=== PATIENT | female | born 1950 | race Caucasian/White ===

== ENCOUNTER 2016-10-28 07:11 | Outpatient (CLI) | payer MEDICARE, BC ==
[~2016-10-28] VITALS: Ht 170.2 cm; Wt 114.5 kg
--- NOTE | ~2016-10-28 | HEMODYNAMI ---
PATIENT:LU ALONZO MEDICAL RECORD: [id number] : 52 LOCATION:[facility] ADMISSION DATE: 10/28/16 Generatedon:10/28/201610:39 Patient name: LU ALONZO Patient #: [id number] SSN: : 1950 Date of study: 10/28/2016 Page: Of Hemodynamic Procedure Report Patient Data Patient Demographics Procedure consent was obtained First Name: LU Gender: Female Last Name: CHERI : 1950 Patient #: [id number] Age: 66 year(s) Race: Additional ID: [id number] Contact details Address: [facility] [address] State: [place] City: [place] Zip code: [address] Past Medical History Performed procedures and imaging results Date Procedure Procedure Results Comments Stress testing Positive->Intermediate with SPECT MPI risk Allergies: No known allergies Admission Admission Data Admission Date: 10/28/2016 Admission Time: 7:11 Admit Source: Other Height (in.): 67 BSA: 2.24 (m2) Height (cm.): 170.18 BMI: 39.94 (kg/m2) Weight (lbs.): 255 Weight (kg.): 115.67 Lab Results Lab Result Date: 10/28/2016 Lab Result Time: 0:00 Biochemistry Name Units Result Min Max Creatinine mg/dl 0.8 --(-*--)-- 0.6 1.3 CBC Name Units Result Min Max Hemoglobin g/dl 13.3 -*(----)-- 13.5 17.5 Procedure Procedure Types Cath Procedure Diagnostic Procedure LHC LHC w/Coronaries Miscellaneous Procedures Moderate Sedation up to 15 minutes Procedure Description Procedure Date Procedure Date: 10/28/2016 Procedure Start Time: 10:30 Procedure End Time: 10:38 Procedure Staff Name Function Kameron Samson MD Performing Physician Ernst Padron RN Nurse Bea Alberto RT Scrub Reinier Flores RT Monitor Procedure Data Cath Procedure Fluoroscopy Diagnostic fluoroscopy Total fluoroscopy Time: 1.4 time: 1.4 min min Diagnostic fluoroscopy Total fluoroscopy dose: 466 dose: 466 mGy mGy Contrast Material Contrast Material Type Amount (ml) Isovue 300 45 Entry Location Entry Primary Successful Side Size Upsize Upsize Entry Closure Vivar ccessful Closure Location (Fr) 1 (Fr) 2 (Fr) Remarks Device Remarks Radial Right 6 Fr Mechanical artery Short Compression Estimated blood loss: 5 ml Diagnostic catheters Device Type Used For End Catheter Placement Terumo 5Fr Kenton 110cm Procedure catheter Procedure Complications No complications Procedure Medications Medication Administration Route Dosage Oxygen NC 2 l/min Heparin Flush Bag added to field 2 bags (1000units/500ml NS) 0.9% NaCl I.V. 100 ml/hr Radial Cocktail added to field 1 syringe (Verapomil 2mg/Nitro 400mcg/Heparin 1500units) Fentanyl I.V. 50 mcg Versed I.V. 1 mg Fentanyl I.V. 50 mcg Versed I.V. 1 mg Fentanyl I.V. 50 mcg Fentanyl I.V. 50 mcg Radial Cocktail I.A. 1 syringe (Verapomil 2mg/Nitro 400mcg/Heparin 1500units) Hemodynamics Rest BSA: 2.24 (m2) HGB: 13.3 (g/dl) O2 Consumption: Estimated: 256.29 (ml/min) O2 Co nsumption indexed: Estimated:114.42 (ml/min/m) Heart Rate: 126 (bpm) Snapshots Pre Cath Intra NCS Post Cath Vital Signs Time Heart Resp SPO2 NIBP (mmHg) Rhythm Pain Sedation Rate (ipm) (%) Status Level (bpm) 10:04:56 82 18 99 130/69(100) NSR 0 (11) 10(A) , No pain 10:09:16 83 18 99 136/74(100) NSR 0 (11) 10(A) , No pain 10:13:32 84 18 97 130/70(95) NSR 0 (11) 10(A) , No pain 10:17:52 86 19 96 125/71(86) NSR 0 (11) 10(A) , No pain 10:22:12 88 19 96 126/71(92) NSR 0 (11) 10(A) , No pain 10:26:30 86 16 98 114/68(80) NSR 0 (11) 10(A) , No pain 10:30:46 87 17 94 115/68(79) NSR 0 (11) 9(A) , No pain 10:34:58 95 16 95 107/53(64) NSR 0 (11) 9(A) , No pain 10:38:37 98 16 95 115/81(89) NSR 0 (11) 9(A) , No pain Medications Time Medication Route Dose Verified Delivered Reason Notes Effectiveness by by 10:12:17 Oxygen NC 2 l/min Ernst Ernst Per Vito Padron RN physician RN 10:12:25 Heparin Flush added 2 bags Ernst Ernst used for Bag to Vito Padron RN procedure (1000units/500ml field RN NS) 10:12:39 0.9% NaCl I.V. 100 Ernst Ernst Per ml/hr Vito Padron RN physician RN 10:13:00 Radial Cocktail added 1 Ernst Ernst used for (Verapomil to syringe Vito Padron RN procedure 2mg/Nitro RN 400mcg/Heparin 1500units) 10:23:29 Fentanyl I.V. 50 mcg Ernst Ernst for sedation Vito Padron RN RN 10:23:36 Versed I.V. 1 mg Ernst Ernst for sedation Vito Padron RN RN 10:25:22 Fentanyl I.V. 50 mcg Ernst Ernst for sedation Vito Padron RN RN 10:25:26 Versed I.V. 1 mg Ernst Ernst for sedation Vito Padron RN RN 10:29:59 Fentanyl I.V. 50 mcg Ernst Ernst for sedation Vito Padron RN RN 10:32:05 Fentanyl I.V. 50 mcg Ernst Ernst for sedation Vito Padron RN RN 10:32:13 Radial Cocktail I.A. 1 Ernst Kameron for (Verapomil syringe Vito Samson MD vasodilation 2mg/Nitro RN 400mcg/Heparin 1500units) Procedure Log Time Note 9:28:50 Diagnostic Cath Status : Elective 9::23 Time tracking: Regular hours 9::28 Plan of Care:Hemodynamics will remain stable., Cardiac rhythm will remain stable., Comfort level will be maintained., Respiratory function will remain adequate., Patient/ family verbilizes understanding of procedure., Procedure tolerated without complication., Recovers from procedure without complications.. 9:30:45 Patient Height : 170.18 cm 9:30:47 Patient Weight : 115.67 kg 9:32:39 Lab Result : Hemoglobin 13.3 g/dl 9:32:39 Lab Result : Creatinine 0.8 mg/dl 9:33:27 Patient allergic to No known allergies 9:33:46 H&P Date Dictated: 10/16/2016 Within 30 days and on chart., H&P Addendum completed by physician on day of procedure. (MUST COMPLETE FOR ALL OUTPATIENTS). 9:45:53 Ernst Padron RN sent for patient. Start room use. 9:57:28 Patient received from Pre/Post Procedure Room to CCL 1 Alert and oriented. Tansferred to table in Supine position. 9:57:37 Warm blankets applied, and agusto hugger turned on for patient comfort. 9:57:38 Correct patient and procedure confirmed by team. 9:57:39 Signed procedure consent form obtained from patient. 9:57:39 ECG and BP/O2 sat monitors applied to patient. 9:57:40 Full Disclosure recording started 10:03:38 Vital chart was started 10:03:39 Baseline sample Acquired. 10:03:45 Rhythm: sinus rhythm 10:10:11 Pre-procedure instructions explained to patient. 10:10:12 Pre-op teaching completed and patient verbalized understanding. 10:10:13 Family in waiting room. 10:10:14 Patient NPO since Midnight. 10:10:16 Is the patient allergic to Iodine/contrast media? No. 10:10:17 Is patient on blood thinner?No 10:10:19 Patient diabetic? No. 10:10:22 Previous problem with sedation/anesthesia? No ? 10:10:23 Snore? Yes 10:10:24 Sleep apnea? Yes 10:10:25 Deviated septum? No 10:10:26 Opens mouth fully? Yes 10:10:26 Sticks out tongue? Yes 10:10:28 Airway obstruction? No ? 10:10:30 Dentures? No ? 10:10:34 Modified Triston's test Ulnar < 7 seconds 10:10:35 Patient pain scale 0/10 ?. 10:10:43 IV patent on arrival in left hand with 0.9% NaCl at [facility]. 10:10:57 Lab results completed and on chart. 10:11:00 Right Radial & Right Groin area was prepped with chlora-prep and draped in sterile fashion 10:11:01 Alarms reviewed by RDarryl N. 10:11:02 Sharps counted by scrub and verified by R.N. 10:12:17 Oxygen 2 l/min NC was administered by Ernst Padron RN; Per physician; 10:12:25 Heparin Flush Bag (1000units/500ml NS) 2 bags added to field was administered by Ernst Padron RN; used for procedure; 10:12:39 0.9% NaCl 100 ml/hr I.V. was administered by Ernst Padron RN; Per physician; 10:12:55 Baseline sample Acquired. 10:13:00 Radial Cocktail (Verapomil 2mg/Nitro 400mcg/Heparin 1500units) 1 syringe added to field was administered by Ernst Padron RN; used for procedure; 10:13:03 Use device set Radial Dx 10:13:07 Tegaderm 4 x 4 opened to sterile field. 10:13:08 Acist Manifold opened to sterile field. 10:13:08 Acist Hand Control opened to sterile field. 10:13:09 Acist Syringe opened to sterile field. 10:13:10 Medline Cath Pack opened to sterile field. 10:13:10 Bag Decanter opened to sterile field. 10:13:11 Terumo 6Fr Slender Glidesheath opened to sterile field. 10:13:11 St Asim 260cm J .035 wire opened to sterile field. 10:13:30 ACC Patient presents with Stable Angina CCS Anginal Class 2--Slight limitation of ordinary activity. 10:13:33 ACCPatient has been prescribed/administered the following anti-anginal medication within the last 2 weeks: Beta Elayne 10:15:12 Admit Source: Other 10:21:00 Zero performed for pressure channel P2 10:23:19 Physician arrived 10:23:19 --------ALL STOP TIME OUT------ 10:23:20 Final Timeout: patient, procedure, and site verified with staff and physician. All members of the team are in agreement. 10:23:23 Right Radial & Right Groin site verified by team. 10:23:25 Physical assessment completed. ASA score P 2 - A patient with mild systemic disease as per Kameron Samson MD. 10::29 Fentanyl 50 mcg I.V. was administered by Ernst Padron RN; for sedation; ::29 Sedation plan: IV Moderate Sedation Versed, Fentanyl 10::36 Versed 1 mg I.V. was administered by Ernst Padron RN; for sedation; 10::22 Fentanyl 50 mcg I.V. was administered by Ernst Padron RN; for sedation; 10::26 Versed 1 mg I.V. was administered by Ernst Padron RN; for sedation; 10::53 Procedure started. 10::59 Fentanyl 50 mcg I.V. was administered by Ernst Padron RN; for sedation; 10:30:00 Local anesthetic to right radial artery with Lidocaine 2% by Kameron Samson MD.INITIAL ACCESS ONLY 10:30:07 A 6 Fr Short sheath was inserted into the Right Radial artery 10:31:46 A Terumo 5Fr Kenton 110cm catheter was advanced over the wire and used for Procedure. 10:32:05 Fentanyl 50 mcg I.V. was administered by Ernst Padron RN; for sedation; 10:32:13 Radial Cocktail (Verapomil 2mg/Nitro 400mcg/Heparin 1500units) 1 syringe I.A. was administered by Kameron Samson MD; for vasodilation; 10:32:18 LV gram done using DAVE 10:32:20 Injector settings: Ml/sec: 5, Volume: 15, 10:32:21 LV hemodynamics recorded. 10:32:58 EF : 60 % 10:33:30 LCA angiography performed. 10:34:42 RCA angiography performed. 10:34:45 Catheter removed. 10:35:24 Terumo TR Band Standard opened to sterile field. 10:36:11 Sheath removed intact; hemostasis achieved with Mechanical Compression to the Right Radial artery. 10:36:14 Procedure ended.(Physican Out) :36:25 Fluoroscopy time 01.40 minutes. ::29 Fluoroscopy dose: 466 mGy 10:36:29 Flurop Dose total: 466 10:36:32 Contrast amount:Isovue 300 45ml. 10:36:34 Sharps counted by scrub and verified by R.N. 10:36:42 Insertion/operative site no bleeding no hematoma. 10:36:53 Post right radial artery:stable, soft, clean and dry 10:36:54 Post Procedure Pulses reassessed and unchanged 10:37:04 Post-procedure physical assessment completed. ASA score P 2 - A patient with mild systemic disease as per Kameron Samson MD. 10:37:08 Post procedure rhythm: unchanged. 10:37:10 Estimated blood loss: 5 ml 10:37:17 Post procedure instruction explained to patient.Patient verbalizes understanding. 10:37:17 Patient needs reinforcement of post procedure teaching. 10:37:20 TR band inflated with 10cc of air. 10:38:07 Procedure type changed to Cath procedure, Diagnostic procedure, LHC, LHC w/Coronaries, Miscellaneous Procedures, Moderate Sedation up to 15 minutes 10:38:23 Procedure and supply charges have been captured, reviewed, submitted and are correct. 10:38:24 Procedure Complication : No complications 10:38:26 Vital chart was stopped 10:38:27 See physician's report for complete and final results. 10:38:28 Report given to Pre/Post Procedure Room. 10:38:31 Patient transfered to Pre/Post Procedure Room with Stretcher. 10:38:33 Procedure ended. 10:38:33 Full Disclosure recording stopped 10:38:39 End room use (Document Last) Device Usage Item Name Manufacture Quantity Catalog Hospital Part Current Minimal Lot# / Number Charge Number Stock Stock Serial# Code Tegaderm 4 1 [id number] 5 x 4 Acist Acist 1 22784 [id number] [id number] 5 Manifold [employer] Acist Hand Acist 1 15927 656724 [id number] 528154 5 Control [employer] Inc Acist Acist 1 84350 224438 209760 420133 20 Syringe [employer] Inc Medline Cardinal 1 [id number] 54789 083390 5 Cath Pack Health Bag Microtek 1 2001S 288125 00743 615891 5 [employer]. Terumo 6Fr Terumo 1 [id number] 441433 866062 262164 [address] St Asim 1 [id number] 479527 236495 080546 30 260cm J .035 wire Terumo 5Fr Terumo 1 [id number] 271077 836529 383040 5 Kenton 110cm catheter Terumo TR Terumo 1 [id number] 308940 475918 852168 40 Band Standard Signature Audit Conrad Stage Time Signature Unsigned Intra-Procedure 10/28/2016 Reinier Flores 10:39:18 AM RT(R) Signatures Monitor : Reinier Flores RT Signature : Date : Time : [place] [id number] [place] [id number]
[2016-10-28] MEDS ORDERED: CYMBALTA30 MG PO (07:40)
[2016-10-28] MEDS ORDERED: PROVIGIL100 MG PO (07:40)
[2016-10-28] MEDS ORDERED: CONCERTA 54 MG54 MG PO (07:40)
[2016-10-28] MEDS ORDERED: DESERYL100 MG PO (07:41)
[2016-10-28] MEDS ORDERED: AMBIEN10 MG PO (07:41)
[2016-10-28] MEDS ORDERED: ZYRTEC10 MG PO (07:42)
[2016-10-28 07:50] VITALS: BP 139/78; Ht 170.2 cm; Wt 114.5 kg
[2016-10-28 08:13] LABS: BASOPHILS 0.8 % (0.0-2.0); EOSINOPHILS 1.9 % (0-7); HEMATOCRIT 40.1 % (36.0-48.0); HEMOGLOBIN 13.3 g/dL (12-16); IMMATURE GRANULOCYTES 0.2 % (0-5); LYMPHOCYTES 34.8 % (15-50); MCHC 33.2 g/dL (31.0-37.0); MCV 87.4 fL (80.0-100.0); MEAN PLATELET VOLUME 9.9 fL (7.4-10.4); MONOCYTES 13.4 % (2-11); NEUTROPHILS 48.9 % (40-80); PLATELET COUNT 249 10x3/uL (130-400); RBC 4.59 10x6/uL (4.00-5.40); RDW 14.2 % (11.5-14.5); WBC 8.4 10x3/uL (4.8-10.8)
[2016-10-28 08:21] LABS: CALC OSMOLALITY 280 mosm/kg (275-300); CARBON DIOXIDE 27.9 mmol/L (21.0-32.0); CHLORIDE - SERUM 103 mmol/L (98-107); CREATININE - SERUM 0.8 mg/dL (0.6-1.3); GLUCOSE 110 mg/dL (74-106); POTASSIUM - SERUM 4.1 mmol/L (3.5-5.1); SODIUM 139 mmol/L (136-145); UREA NITROGEN 17 mg/dL (7-18); eGFR NON AFRICAN AMERICAN 76 mL/min (90-120)
--- NOTE | 2016-10-28 11:05 | NUR ---
SPEAKING WITH FAMILY AT BEDSIDE. 2L NASAL CANNULA, NO RESP DISTRESS NOTED. VSS. RIGHT WRIST DRESSING CDI, NO BLEEDING OR HEMATOMA NOTED. NO C/O NAUSEA OR CHEST PAIN. WILL CONTINUE TO MONITOR.
--- NOTE | 2016-10-28 11:30 | NUR ---
1130 VSS WITH CHEST PAIN DENIED TR BAND TO R/WRIST CDI NO BLEEDING NO HEMATOMA NOTED. INSTRUCTED PATIENT TO KEEP RUE STRAIGHT NO BENDING OR FLEXING OF WRIST 1200 TR BAND REMAINS TO R/WRIST CDI NO BLEEDING NO HEMATOMA NOTED VSS WITH CHEST PAIN DENIED.REPOSITIONED TO SITTING WITH HOB UP 30 DEGREES SANDWICH AND COFFEE TO BEDSIDE
--- NOTE | 2016-10-28 13:11 | NUR ---
1230 PT DENIES ANY C/O. TR BAND DEFLATED WITH NO BLEEDING OR HEMATOMA NOTED AT SITE. VSS. RR EVEN AND UNLABORED. PT DENIES NEEDS AT THIS TIME. 1245 TEGADERM AND 2X2 PLACED TO CATH SITE, AREA IS FREE FROM BLEEDING OR HEMATOMA. IV DC'D WITH CATH INTACT. REVIEWED DC INSTRUCTIONS WITH PT WHO VERBALIZES UNDERSTANDING. PT IS DRESSING FOR DC TO HOME. 1300 PT HAS AMBULATED TO THE BATHROOM AND VOIDED QS. DENIES ANY C/O. PT ESCORTED TO PRIVATE AUTO VIA WC BY STAFF WITH DRIVING HER HOME.
--- NOTE | 2016-11-11 14:37 | OP ---
PATIENT NAME: LU ALONZO MEDICAL RECORD: [id number] :52 LOCATION:D.CAT ADMISSION DATE: SURGEON: MARIE ESCOBEDO MD DATE OF OPERATION: 10/28/2016 PROCEDURES: 1. Left heart catheterization. 2. Selective coronary angiography. 3. Left ventriculogram. INDICATION: Angina and coronary artery disease. PROCEDURE IN DETAIL: After informed consent was obtained and after a detailed explanation of the risks, benefits as well as alternative therapies, the patient elected to proceed with angiogram and heart catheterization. The right radial area was prepped and draped in normal sterile fashion. The right radial artery was cannulated via modified Seldinger technique with placement of 5-Thai sheath. All catheters exchanged through this sheath. FINDINGS: The left ventriculogram was performed in standard 30-degree DAVE view, reveals good cardiac wall motion throughout all segments. Overall ejection fraction estimated at 60%. SELECTIVE CORONARY ANGIOGRAPHY: Left main, left anterior descending, left circumflex, right coronary artery are all smooth-walled vessels with no angiographic evidence of coronary artery disease. OVERALL IMPRESSION: 1. No angiographic evidence of coronary artery disease. 2. Normal left heart pressures. 3. Normal left ventricular systolic function. Chest pain is noncardiac in etiology. No further cardiac workup needs to be ascertained. TRANSINT:[id number] Voice Confirmation ID: [id number] DOCUMENT ID: [id number] MARIE ESCOBEDO MD at 1437 CC: [id number] DICTATION DATE: 10/28/16 1039 VOCATIONAL EDUCATION PROFESSIONAL: 10/28/16 1130 DEP CLI 10/28/16 [place] [id number] [place] [id number]
== END 2016-10-28 13:00 | disposition home or self-care (01) ==
LOC: D.CATH 07:11
PROVIDERS: Internal Medicine Interventional Cardiology
DX: I20.9 Angina pectoris, unspecified (principal); R94.30 Abnormal result of cardiovascular function study, unspecified